=== PATIENT | female | born 1995 | race Caucasian/White ===

== ENCOUNTER 2024-10-20 16:05 | Emergency (ER) | payer OTHER ==
[2024-10-20] MEDS: Ketorolac 30 MG/ML SDV IM ONE (16:59)
== END 2024-10-20 17:06 | disposition home or self-care (01) ==
LOC: DL.ED 16:05
DX: S86.911A Strain of unspecified muscle(s) and tendon(s) at lower leg level, right leg, initial encounter (principal); W11.XXXA Fall on and from ladder, initial encounter; Y93.89 Activity, other specified
CPT/HCPCS: 73562; 96372; 99283; J1885